=== PATIENT | female | born 1995 | race Caucasian/White ===

== ENCOUNTER 2020-08-01 12:36 | Inpatient (IN) | payer OTHER ==
[2020-08-01] MEDS ORDERED: ONDANSETRON *ODT* 4 MG TABLET SL PRN (15:11)
[2020-08-01] MEDS ORDERED: METHOCARBAMOL 500 MG TABLET PO PRN (15:11)
[2020-08-01] MEDS ORDERED: MAGNESIUM HYDROX 2400MG/30ML ORAL SUSPENSION 30 ML CUP PO PRN (15:11)
[2020-08-01] MEDS ORDERED: BISMUTH SUBSALICYLATE 262 MG/15 ML BTL PO PRN (15:11)
[2020-08-01] MEDS ORDERED: MAG HYDROX/AL HYDROX/SIMETH 30 ML UNIT-DOSE CUP PO PRN (15:11)
[2020-08-01] MEDS ORDERED: MENTHOL/PHENOL 1 EACH UD MM PRN (15:11)
[2020-08-01] MEDS ORDERED: IBUPROFEN 400 MG TABLET (FP) PO PRN (15:11)
[2020-08-01] MEDS ORDERED: ACETAMINOPHEN 325 MG TABLET (FP) PO PRN ×2 (15:11)
[2020-08-01] MEDS ORDERED: MAGNESIUM CITRATE 300 ML BOTTLE PO PRN (15:11)
[2020-08-01] MEDS ORDERED: chlordiazePOXIDE HCL 25 MG CAPSULE PO PRN (15:21)
[2020-08-01] MEDS ORDERED: cloNIDine HCL 0.1 MG TABLET PO PRN (15:33)
[2020-08-01] MEDS ORDERED: METHADONE HCL 10 MG TABLET (FOR DETOX USE ONLY) PO ONE (15:33)
[2020-08-01] MEDS: chlordiazePOXIDE HCL 25 MG CAPSULE PO SCH ×2 (17:48→22:28)
[2020-08-01] MEDS: hydrOXYzine PAMOATE 25 MG CAPSULE (FP) PO SCH ×2 (17:49→22:29)
[2020-08-01] MEDS: MELATONIN 5 MG TABLETS PO SCH (22:29)
[2020-08-01] MEDS: THIAMINE HCL 100 MG TABLET (FP) PO SCH (22:29)
[2020-08-02] MEDS: chlordiazePOXIDE HCL 25 MG CAPSULE PO SCH ×4 (06:27→22:40)
[2020-08-02] MEDS: hydrOXYzine PAMOATE 25 MG CAPSULE (FP) PO SCH ×5 (06:28→22:41)
[2020-08-02] MEDS ORDERED: METHADONE HCL 10 MG TABLET (FOR DETOX USE ONLY) ONE (08:34)
[2020-08-02] MEDS ORDERED: METHADONE HCL 5 MG TABLET (FOR DETOX USE ONLY) ONE (08:35)
[2020-08-02] MEDS ORDERED: METHADONE (DETOX) 20 MG, METHADONE (DETOX) 5 MG PO ONE (10:00)
[2020-08-02] MEDS: CLINDAMYCIN PHOSPHATE 1% TP SCH (11:21)
[2020-08-02] MEDS: PRENATAL VITAMINS W/ FOLIC ACID TABLET (FP) PO SCH (11:26)
[2020-08-02] MEDS ORDERED: COLLOIDAL OATMEAL 1 BAR EACH TP ONE (11:58)
[2020-08-02 12:15] LABS: HEMATOCRIT 36.8 % (32.4-45.2); HEMOGLOBIN 12.4 GM/dL (10.7-15.3); MCH 29.2 pg (25.7-33.7); MCHC 33.6 g/dl (32.0-36.0); MEAN CELL VOLUME 86.8 fl (80-96); MEAN PLT VOLUME 8.9 fl (7.5-11.1); PLATELET COUNT 260 K/MM3 (134-434); RBC 4.24 M/mm3 (3.60-5.2); RDW 13.3 % (11.6-15.6); WHITE BLOOD COUNT 7.2 K/mm3 (4.0-10.0)
[2020-08-02 12:19] LABS: POTASSIUM 3.5 mmol/L (3.5-5.1)
[2020-08-02 12:24] LABS: ALBUMIN 3.7 g/dl (3.4-5.0); BLOOD UREA NITROGEN 16.5 mg/dL (7-18)
[2020-08-02 12:27] LABS: CREATININE 0.9 mg/dL (0.55-1.3)
[2020-08-02 12:29] LABS: BILIRUBIN,TOTAL 0.8 mg/dL (0.2-1); TOT PROT 6.9 g/dl (6.4-8.2)
[2020-08-02] MEDS: MELATONIN 5 MG TABLETS PO SCH (22:41)
[2020-08-02] MEDS: THIAMINE HCL 100 MG TABLET (FP) PO SCH (22:41)
[2020-08-02] MEDS: TRETINOIN TP SCH (22:41)
[2020-08-02] MEDS: [UNRECOGNIZED DRUG - OTHER] TP SCH (22:41)
[2020-08-03] MEDS: chlordiazePOXIDE HCL 25 MG CAPSULE PO SCH ×4 (06:17→22:26)
[2020-08-03] MEDS: hydrOXYzine PAMOATE 25 MG CAPSULE (FP) PO SCH ×5 (06:18→22:26)
[2020-08-03] MEDS ORDERED: METHADONE HCL 10 MG TABLET (FOR DETOX USE ONLY) PO ONE (10:00)
[2020-08-03] MEDS: CLINDAMYCIN PHOSPHATE 1% TP SCH (11:18)
[2020-08-03] MEDS: PRENATAL VITAMINS W/ FOLIC ACID TABLET (FP) PO SCH (11:19)
[2020-08-03] MEDS: MELATONIN 5 MG TABLETS PO SCH (22:25)
[2020-08-03] MEDS: THIAMINE HCL 100 MG TABLET (FP) PO SCH (22:26)
[2020-08-03] MEDS: TRETINOIN TP SCH (22:28)
[2020-08-03] MEDS: [UNRECOGNIZED DRUG - OTHER] TP SCH (22:28)
[2020-08-04] MEDS ORDERED: chlordiazePOXIDE HCL 10 MG CAPSULE PO PRN
[2020-08-04] MEDS: chlordiazePOXIDE HCL 10 MG CAPSULE PO SCH ×4 (06:26→22:41)
[2020-08-04] MEDS: hydrOXYzine PAMOATE 25 MG CAPSULE (FP) PO SCH ×5 (06:27→22:41)
[2020-08-04] MEDS ORDERED: METHADONE HCL 10 MG TABLET (FOR DETOX USE ONLY) ONE (08:17)
[2020-08-04] MEDS ORDERED: METHADONE HCL 5 MG TABLET (FOR DETOX USE ONLY) ONE (08:18)
[2020-08-04] MEDS ORDERED: METHADONE (DETOX) 10 MG, METHADONE (DETOX) 5 MG PO ONE (10:00)
[2020-08-04] MEDS: PRENATAL VITAMINS W/ FOLIC ACID TABLET (FP) PO SCH (10:25)
[2020-08-04] MEDS: CLINDAMYCIN PHOSPHATE 1% TP SCH (10:25)
[2020-08-04] MEDS: MELATONIN 5 MG TABLETS PO SCH (22:42)
[2020-08-04] MEDS: THIAMINE HCL 100 MG TABLET (FP) PO SCH (22:42)
[2020-08-04] MEDS: [UNRECOGNIZED DRUG - OTHER] TP SCH (22:43)
[2020-08-04] MEDS: TRETINOIN TP SCH (22:43)
[2020-08-05] MEDS: hydrOXYzine PAMOATE 25 MG CAPSULE (FP) PO SCH ×5 (06:34→22:43)
[2020-08-05] MEDS: chlordiazePOXIDE HCL 10 MG CAPSULE PO SCH ×2 (06:34→18:23)
[2020-08-05] MEDS ORDERED: METHADONE HCL 10 MG TABLET (FOR DETOX USE ONLY) PO ONE (10:00)
[2020-08-05] MEDS: PRENATAL VITAMINS W/ FOLIC ACID TABLET (FP) PO SCH (10:25)
[2020-08-05] MEDS: CLINDAMYCIN PHOSPHATE 1% TP SCH (10:26)
[2020-08-05] MEDS: NICOTINE POLACRILEX 2 MG GUM BUC PRN ×2 (12:01→16:39)
[2020-08-05] MEDS: MELATONIN 5 MG TABLETS PO SCH (22:41)
[2020-08-05] MEDS: [UNRECOGNIZED DRUG - OTHER] TP SCH (22:42)
[2020-08-05] MEDS: TRETINOIN TP SCH (22:42)
[2020-08-05] MEDS: THIAMINE HCL 100 MG TABLET (FP) PO SCH (22:43)
[2020-08-06] MEDS ORDERED: chlordiazePOXIDE HCL 10 MG CAPSULE PO ONE (05:00)
[2020-08-06] MEDS ORDERED: METHADONE HCL 5 MG TABLET (FOR DETOX USE ONLY) PO ONE (06:00)
[2020-08-06] MEDS: NICOTINE POLACRILEX 2 MG GUM BUC PRN (06:34)
[2020-08-06] MEDS: hydrOXYzine PAMOATE 25 MG CAPSULE (FP) PO SCH ×2 (06:36→10:38)
[2020-08-06 07:08] VITALS: BP 85/51; PULSE 69; TEMP 98.4
[2020-08-06] MEDS: PRENATAL VITAMINS W/ FOLIC ACID TABLET (FP) PO SCH (10:38)
[2020-08-06] MEDS: CLINDAMYCIN PHOSPHATE 1% TP SCH (10:38)
== END 2020-08-06 09:22 | disposition home or self-care (01) | DRG 773 ==
LOC: YASAS 12:36 → Y3N 14:37
PROVIDERS: ADMIT Allergy & Immunology; ATTEND Allergy & Immunology
PROC: HZ2ZZZZ Detoxification Services for Substance Abuse Treatment (ICD-10-PCS; principal; 2020-08-01)
DX: F11.23 Opioid dependence with withdrawal (principal); F10.230 Alcohol dependence with withdrawal, uncomplicated; I95.9 Hypotension, unspecified; F41.9 Anxiety disorder, unspecified; F32.9 Major depressive disorder, single episode, unspecified; J45.909 Unspecified asthma, uncomplicated; U07.0 Vaping-related disorder; Z87.891 Personal history of nicotine dependence
CPT/HCPCS: 36415; 80053; 81025; 85027; 86780; 93005; 93010; C9803; U0003